=== PATIENT | male | born 1995 | race Caucasian/White ===

== ENCOUNTER 2023-08-06 13:23 | Emergency (ER) | payer OTHER ==
[~2023-08-06] VITALS: Ht 180.3 cm; Wt 86.2 kg
[~2023-08-06 13:23] MED LIST: CRUTCH4 USE; Crutch1 EACH MISC; HYDACE5325 PO; IBUP800 PO
[2023-08-06 13:43] VITALS: BP 145/68
[2023-08-06] MEDS ORDERED: IBUP800 PO (14:56)
== END 2023-08-07 03:10 | disposition home or self-care (01) ==
LOC: ER 13:23
DX: S16.1XXA Strain of muscle, fascia and tendon at neck level, initial encounter (principal); S40.211A Abrasion of right shoulder, initial encounter; S40.811A Abrasion of right upper arm, initial encounter; S00.91XA Abrasion of unspecified part of head, initial encounter; R07.89 Other chest pain; W22.8XXA Striking against or struck by other objects, initial encounter; F17.220 Nicotine dependence, chewing tobacco, uncomplicated
CPT/HCPCS: 71046; 72040; 96374; 99284-25; A9270; J1885

== ENCOUNTER → 2025-09-08 | Outpatient (CLI) | payer BC, OTHER | LOC: LAB SHORT 18:05 → LAB 18:05 | DX: R31.9 Hematuria, unspecified (principal) | CPT/HCPCS: 87086 ==

== ENCOUNTER 2025-10-10 11:35 | Inpatient (IN) | payer BC, OTHER ==
[2025-10-10] VITALS (17 sets, daily range): BP systolic 106–149; BP diastolic 56–84
[~2025-10-10] VITALS: Ht 180.3 cm; Wt 88.0 kg
[~2025-10-10 11:35] MED LIST changes: +LIDO700A20 TOP; +MOBIC15 MG PO
[2025-10-10] MEDS ORDERED: OxyCODONE 5 mg/Acetamin 325 mg TABLET PO PRN (13:15)
[2025-10-10] MEDS ORDERED: CeFAZolin Sodium 2,000 MG in NS 100 ML IV SCH (13:15)
[2025-10-10] MEDS ORDERED: Morphine Sulfate 4 MG/1 ML Injection IV PRN ×2 (13:15→15:25)
[2025-10-10] MEDS ORDERED: Ondansetron HCl 2 MG / ML 2ML Vial IV PRN ×2 (13:20→15:25)
--- NOTE | 2025-10-10 13:30 | NUR ---
AMBULATORY INTO [facility]. HISTORY AND ALLERGIES REVIEWED. PT REPORTS 4/10 GENERALIZED "JOINT" PAIN. LUNGS CLEAR-SATS>90% ON RA. NPO STATUS CONFIRMED. PT BELONGINGS AND RX GIVEN TO HIS RONEN.
[2025-10-10] MEDS ORDERED: Bupivacaine 0.25% Epi 1:200000 30 ML Vial ONE (14:21)
[2025-10-10] MEDS ORDERED: FentaNYL Citrate 50 MCG/ML 5 ML Injection ONE (14:22)
[2025-10-10] MEDS ORDERED: Lidocaine 2%-Epineph 1:200000 20 ML SDV ONE (14:23)
[2025-10-10] MEDS ORDERED: HYDROmorphone HCl/Pf 1MG SYR ONE ×2 (15:04→17:08)
[2025-10-10] MEDS ORDERED: ePHEDrine Sulfate 50 MG/ML 1ML Injection IV PRN (15:25)
[2025-10-10] MEDS ORDERED: FentaNYL Citrate 50 MCG/ML 2 ML Injection IV PRN ×2 (15:25→15:30)
[2025-10-10] MEDS ORDERED: HYDROmorphone HCl/Pf 1MG SYR IV PRN (15:30)
[2025-10-10] MEDS ORDERED: Metoclopramide HCl 5MG / ML 2ML Vial IV PRN (15:30)
[2025-10-10] MEDS ORDERED: Labetalol HCL 5 MG/ML 4ML Injection (Single Dose) ONE (15:40)
[2025-10-10] MEDS ORDERED: HydrALAZINE HCl 20 MG / ML 1ML Vial ONE (15:40)
[2025-10-10] MEDS ORDERED: Rocuronium Bromide 10 MG/ML 5ML Injection IV ONE (16:16)
[2025-10-10] MEDS ORDERED: Sugammadex Sodium 200 MG/2ML SDV (100 MG/ML) ONE (16:17)
[2025-10-10] MEDS ORDERED: FentaNYL Citrate 50 MCG/ML 2 ML Injection ONE (17:08)
--- NOTE | 2025-10-10 18:21 | NUR ---
PT ARRIVED TO UNIT FROM PACU TRANSFERRED FROM [facility] TO BED. LAP INCISIONS TO ABD X5 W/TISS ADHESIVE. MORALEZ DRAINING YELLOW URINE TO GRAVITY. PT RESTING W/EYES CLOSED BUT ANSWERS QUESTIONS. MEDICATED PER ORDERS FOR 6/10 PAIN. IV FLUIDS INFUSING PER ORDERS. SPOUSE BEDSIDE AND FAMILY IN [place]. ORIENTED TO USE OF CALL LIGHT AND PLACED WITHIN REACH.
[2025-10-11 00:01] VITALS: BP 117/58
--- NOTE | 2025-10-11 05:45 | NUR ---
SHIFT SUMMARY POD 1 S/P NEPHRECTOMY. ABD INCISIONS CDI, TISSUE ADHESIVE INTACT. PAIN MANAGED PER EMAR. ROSE CL, DENIES NV. IS A/OX4 WITH VSS; ABLE TO MAKE NEEDS KNOWN. IVF INFUSING PER ORDERS. MORALEZ TO GRAVITY DRAIN, YELLOW URINE NOTED. ATTENTIVE AT BEDSIDE. PT CURRENTLY RESTING IN BED WITH EYES CLOSED; RESP EVEN AND CALL IN REACH. WILL GIVE REPORT TO ONCOMING RN.
[2025-10-11 06:15] VITALS: BP 120/84
[2025-10-11 06:55] VITALS: BP 118/69
[2025-10-11 14:05] VITALS: BP 146/77
--- NOTE | 2025-10-11 15:17 | NUR ---
INCREASED PAIN PT HAS HAD INCREASED ABD PAIN THIS AFTERNOON. PT'S ABD IS MILDLY DISTENDED, HE DENIES PASSING FLATUS. PT HAS BEEN UP AMBULATING IN THE [place]. PT EDUCATED THAT NARCOTIC PAIN MEDICATION CAN SLOW GASTRIC MOTILITY AND WALKING CAN HELP IMPROVE MOTILITY. PT REPORTED UNDERSTANDING. PT ENCOURAGED TO AMBULATE. AT THIS TIME PT DENIES NEED FOR ADDITIONAL PAIN MEDICATION.
--- NOTE | 2025-10-11 17:42 | NUR ---
SHIFT SUMMARY PT IS POD#1 FROM A NEPHRECTOMY. PT HAS HAD GOOD URINE OUTPUT AND GOOD INTAKE. PAIN MANAGEMENT WAS A STRUGGLE THIS AFTERNOON BUT APPEARS TO BE IMPROVING. PT HAS AMBULATED IN THE [place]. PT CALLS APPROPRIATELY.
[2025-10-11 21:21] VITALS: BP 130/84
--- NOTE | 2025-10-12 05:56 | NUR ---
SHIFT SUMMARY POD 2 S/P RIGHT NEPHRECTOMY; INCISIONS CDI. ROSE PO, DENIES N/V. PAIN MANAGED PER EMAR. MORALEZ TO GRAVITY, DRAINING YELLOW URINE. AMB IND IN [place]. SPO2 AT 95% ON 1L NC. PT CURRENTLY RESTING IN BED WITH CALL LIGHT IN REACH, RESP EVEN, AND AT BEDSIDE. WILL GIVE REPORT TO ONCOMING RN
[2025-10-12 06:20] VITALS: BP 143/80
[2025-10-12] MEDS ORDERED: Polyethylene Glycol 3350 17 gm PO SCH (09:00)
[2025-10-12 14:57] VITALS: BP 145/88
--- NOTE | 2025-10-12 17:35 | NUR ---
SHIFT SUMMARY POD2 RADICAL NEPHRECTOMY, A/OX4, VSS, TOLERATING PO, PAIN MANAGED PER EMAR, AMBULATORY INDEPENDENTLY, BOWEL CARE STARTED THIS AM PER MD ORDER THOUGH HE ELECTED TO FORGO A SUPPOSITORY BUT ALSO STATES HE MAY WANT IT LATER. MORALEZ REMOVED AND HE IS ABLE TO VOID INDEPENDENTLY. NO ACUTE EVENTS THIS SHIFT, AWAITING BM/FLATUS FOR DISCHARGE. CALLLIGHT IN REACH.
[2025-10-12 19:34] VITALS: BP 145/90
[2025-10-13 03:14] LABS: BASOPHILS ABSOLUTE AUTO 0.05 K/mm3 (0.00-0.23); BASOPHILS PERCENT AUTO 0 % (0-2); EOSINOPHILS ABSOLUTE AUTO 0.42 K/mm3 (0.00-0.68); EOSINOPHILS PERCENT AUTO 4 % (0-6); Hematocrit 37.1 % (37.0-53.0); Hemoglobin 12.3 g/dL (13.5-17.5); IMMATURE GRAN ABSOLUTE AUTO 0.04 K/mm3 (0.00-0.10); IMMATURE GRAN PERCENT AUTO 0 % (0-1); LYMPHOCYTES ABSOLUTE AUTO 2.14 K/mm3 (0.84-5.20); LYMPHOCYTES PERCENT AUTO 18 % (21-46); MONOCYTES ABSOLUTE AUTO 1.10 K/mm3 (0.16-1.47); MONOCYTES PERCENT AUTO 9 % (4-13); Mean Corpuscular HGB Conc 33.2 g/dL (31.5-36.5); Mean Corpuscular Volume 91 fL (80-100); NEUTROPHILS ABSOLUTE AUTO 8.10 K/mm3 (1.96-9.15); NEUTROPHILS PERCENT AUTO 68 % (41-73); NRBC ABSOLUTE 0.00 K/mm3 (0.00-0.02); NRBC Auto 0.0 /100 WBC (0.0-0.2); Platelet Count 251 K/mm3 (150-400); RDW Coefficient Variation 11.7 % (11.7-14.2); RDW Standard Deviation 39.3 fL (35.1-46.3)
[2025-10-13 03:31] LABS: Anion Gap 9.0 mmol/L (3-11); Blood Urea Nitrogen 14.0 mg/dL (8-24); CO2, Blood 28.0 mmol/L (21-32); Calcium, Blood 9.1 mg/dL (8.5-10.1); Chloride, Blood 97.0 mmol/L (98-108); Creatinine, Blood 1.19 mg/dL (0.60-1.20); Glucose, Blood 127.0 mg/dL (70-99); Potassium, Blood 3.8 mmol/L (3.5-5.5); Sodium, Blood 130.0 mmol/L (136-145)
[2025-10-13 05:35] VITALS: BP 137/72
--- NOTE | 2025-10-13 05:50 | NUR ---
SHIFT SUMMARY CAMMY WAS A/0X4 ON ASSESSMENT. LAPSITES C.D.I. REDNESS NOTED TO MIDDLE SITE. MD INFORMED. PAIN WELL MANAGED. GASX ORDERED FOR GAS PAIN. PT NOTED TO HAVE STARTED PASSING GAS AND HAD A BM THIS SHIFT. PT AMB/ VODIING APPROPRIATELY. DENIES CHEST PAIN, NAUSEA, SOB. NO ACUTE EVENTS THIS SHIFT.
[2025-10-13 07:10] VITALS: BP 138/75
--- NOTE | 2025-10-13 12:39 | NUR ---
DISCHARGE SUMMARY POD3 RADICAL NEPHRECTOMY, A/OX4, VSS, TOLERATING PO, PAIN MANAGED PER EMAR, AMBULATING INDEPENDENTLY, LAP SITES C/D/I, PATIENT STARTED HOME PO ABX THIS AM PER EMAR. FLATUS AND BM OVER NIGHT. DISCUSSED DC INSTRUCTIONS WITH HIM AND HIS INCLUDING HOME CARE, MEDICATIONS, AND FOLLOW UP APPOINTMENTS. IV ACCESS REMOVED BY RAMP SUPERVISOR. NO QUESTIONS AT THIS TIME, PT ESCORTED OUT VIA WC TO PRIVATE AUTO TO GO HOME.
== END 2025-10-13 11:47 | disposition home or self-care (01) | DRG 661 ==
LOC: ORSCMMR 11:35 → ORD 13:00 → ORSCMMR 13:00 → SURS 13:12
PROVIDERS: ADMIT Urology
PROC: 0T9B70Z Drainage of Bladder with Drainage Device, Via Natural or Artificial Opening (ICD-10-PCS; 2025-10-10)
PROC: 0TT14ZZ Resection of Left Kidney, Percutaneous Endoscopic Approach (ICD-10-PCS; principal; 2025-10-11)
PROC: 8E0W4CZ Robotic Assisted Procedure of Trunk Region, Percutaneous Endoscopic Approach (ICD-10-PCS; 2025-10-11)
DX: N28.89 Other specified disorders of kidney and ureter (principal); M19.90 Unspecified osteoarthritis, unspecified site; Z87.891 Personal history of nicotine dependence; Z79.1 Long term (current) use of non-steroidal anti-inflammatories (NSAID)
CPT/HCPCS: 36415; 80048; 85025; 88307; 88341; 88342; A9270; J0360; J0690; J1171; J2270; J2704; J3010; J7120